=== PATIENT | male | born 1955 | race Two or more races ===

== ENCOUNTER 2025-08-03 20:43 | Emergency (ER) | payer MEDICARE, MEDICAID | END 2025-08-03 22:45 | disposition home or self-care (01) | LOC: JP.ED 20:43 | DX: M79.601 Pain in right arm (principal); I10 Essential (primary) hypertension; I25.2 Old myocardial infarction; I48.91 Unspecified atrial fibrillation; J45.909 Unspecified asthma, uncomplicated; F17.200 Nicotine dependence, unspecified, uncomplicated; Z88.6 Allergy status to analgesic agent; Z88.5 Allergy status to narcotic agent; Z91.013 Allergy to seafood; Z79.899 Other long term (current) drug therapy | CPT/HCPCS: 99283 ==